=== PATIENT | female | born 1940 | race Caucasian/White ===

== ENCOUNTER 2016-09-27 10:52 | Inpatient (IN) | payer MEDICARE, OTHER ==
[~2016-09-27] VITALS: Ht 170.2 cm; Wt 60.9 kg
[~2016-09-27 10:52] MED LIST: AVAPRO150 MG PO; GLUCOPHAGE500 MG PO; HYDROCHLOROTHIA25 MG PO; NORVASC10 MG PO; PRAVACHOL40 MG PO; REGLAN10 MG PO; SYNTHROID50 MCG PO; TOPROL XL50 MG PO; ZOFRAN4 MG PO
[2016-09-27 12:08] LABS: BASOPHILS 0.3 % (0-2); EOSINOPHILS 1.8 % (0-7); HEMATOCRIT 41.3 % (36.0-48.0); HEMOGLOBIN 14.3 g/dL (12-16); IMMATURE GRANULOCYTES 0.2 % (0-5); LYMPHOCYTES 13.7 % (15-50); MCHC 34.6 g/dL (31.0-37.0); MCV 92.4 fL (80.0-100.0); MEAN PLATELET VOLUME 9.8 fL (7.4-10.4); MONOCYTES 7.9 % (2-11); NEUTROPHILS 76.1 % (40-80); PLATELET COUNT 182 10x3/uL (130-400); RBC 4.47 10x6/uL (4.00-5.40); RDW 12.2 % (11.5-14.5); WBC 6.6 10x3/uL (4.8-10.8)
[2016-09-27 12:27] LABS: ALBUMIN 3.4 g/dL (3.4-5.0); ALKALINE PHOSPHATASE 62 U/L (46-116); ALT (SGPT) 14 U/L (10-68); CALC OSMOLALITY 274 mosm/kg (275-300); CALCIUM 9.3 mg/dL (8.5-10.1); CARBON DIOXIDE 29.2 mmol/L (21.0-32.0); CHLORIDE - SERUM 101 mmol/L (98-107); CREATININE - SERUM 0.7 mg/dL (0.6-1.3); GLUCOSE 101 mg/dL (74-106); POTASSIUM - SERUM 3.7 mmol/L (3.5-5.1); PROTEIN - SERUM 7.3 g/dL (6.4-8.2); SODIUM 138 mmol/L (136-145); UREA NITROGEN 11 mg/dL (7-18); eGFR NON AFRICAN AMERICAN 87 mL/min (90-120)
[2016-09-27 12:40] LABS: CKMB 0.5 U/L (0.0-3.6); CREATINE KINASE 23 UL (21-215); THYROID STIMULATING HORMONE 1.77 uIU/mL (0.36-3.74); TROPONIN-I < 0.017 ng/mL (0.000-0.060)
[2016-09-27 13:53] LABS: APPEARANCE CLEAR (CLEAR); BILIRUBIN NEGATIVE (NEGATIVE); COLOR YELLOW (YELLOW); GLUCOSE NEGATIVE (NEGATIVE); KETONE SMALL mg/dL (NEGATIVE); LEUKOCYTE ESTERASE TRACE (NEGATIVE); NITRITE NEGATIVE (NEGATIVE); PROTEIN NEGATIVE (NEGATIVE); SPECIFIC GRAVITY 1.015 (1.005-1.020); UROBILINOGEN NORMAL (NORMAL)
[2016-09-27 13:54] LABS: BACTERIA FEW /hpf (NONE SEEN); EPITHELIAL CELLS 0-5 /hpf (0-5); MUCUS <1+ /lpf (NONE SEEN); RED CELLS - URINE 0-5 /hpf (0-5)
[2016-09-27 14:49] LABS: CKMB 0.6 U/L (0.0-3.6); CREATINE KINASE 52 UL (21-215); TROPONIN-I < 0.017 ng/mL (0.000-0.060)
--- NOTE | 2016-09-27 15:48 | NUR ---
PT RECIEVED TO ROOM FROM ER. PT ALERT AND ORIENTED. DENIES PAIN AT REST, REPORTS PAIN WITH MOVEMENT IN HER BACK. BREATHING EQUAL AND UNLABORED. FAMILY AT BEDSIDE. REPORTS FEELING "MORE LIKE HERSELF" SINCE HER WEAKNESS EPISODE. WILL CTM.
[2016-09-27 15:57] VITALS: BP 147/61; Ht 170.2 cm; Wt 60.9 kg
[2016-09-27 19:00] VITALS: BP 128/44
--- NOTE | 2016-09-27 20:00 | NUR ---
PT LYING IN BED, EYES CLOSED, RESPIRATIONS EVEN AND UNLABORED. PT EASILY ROUSABLE TO VERBAL STIMULI, DEMONSTRATES GENERALIZED WEAKNESS. DAUGHTER IN [place] CALLED TO CHECK ON MOM, TRANSFERRED PHONE CALL TO PT WHERE SHE WAS ABLE TO ANSWER ON HER OWN AND SPEAK WITH HER DAUGHTER. PT DENIES ANY NEEDS AT THIS TIME. CONTINUE TO MONITOR CLOSELY.
[2016-09-27 20:40] LABS: CKMB 0.4 U/L (0.0-3.6); CREATINE KINASE 23 UL (21-215)
[2016-09-27 20:41] LABS: TROPONIN-I < 0.017 ng/mL (0.000-0.060)
--- NOTE | 2016-09-27 22:12 | NUR ---
PT'S SON WAS VISITING, HAS GONE HOME NOW, BUT LEFT NUMBER, OXANA MEMBRENO @ [phone]. PT IS RESTING COMFORTABLY. CONTINUE TO MONITOR CLOSELY.
[2016-09-28 02:48] LABS: BASOPHILS 0.2 % (0-2); EOSINOPHILS 3.2 % (0-7); HEMATOCRIT 36.6 % (36.0-48.0); HEMOGLOBIN 12.4 g/dL (12-16); IMMATURE GRANULOCYTES 0.2 % (0-5); MCH 31.3 pg (26.0-34.0); MCHC 33.9 g/dL (31.0-37.0); MCV 92.4 fL (80.0-100.0); MEAN PLATELET VOLUME 9.8 fL (7.4-10.4); MONOCYTES 9.5 % (2-11); NEUTROPHILS 62.9 % (40-80); PLATELET COUNT 165 10x3/uL (130-400); RBC 3.96 10x6/uL (4.00-5.40); WBC 5.4 10x3/uL (4.8-10.8)
[2016-09-28 03:18] LABS: CALC OSMOLALITY 276 mosm/kg (275-300); CALCIUM 8.9 mg/dL (8.5-10.1); CARBON DIOXIDE 27.5 mmol/L (21.0-32.0); CHLORIDE - SERUM 102 mmol/L (98-107); CKMB 0.4 U/L (0.0-3.6); CREATINE KINASE 18 UL (21-215); CREATININE - SERUM 0.6 mg/dL (0.6-1.3); GLUCOSE 101 mg/dL (74-106); POTASSIUM - SERUM 3.6 mmol/L (3.5-5.1); SODIUM 139 mmol/L (136-145); UREA NITROGEN 10 mg/dL (7-18); eGFR NON AFRICAN AMERICAN > 90 mL/min (90-120)
[2016-09-28 03:19] LABS: TROPONIN-I < 0.017 ng/mL (0.000-0.060)
--- NOTE | 2016-09-28 03:31 | NUR ---
BED BATH GIVEN, LINEN CHANGED, GOWN CHANGED.
[2016-09-28 04:00] VITALS: BP 167/52
--- NOTE | 2016-09-28 04:15 | NUR ---
PT AWAKE, ALERT, ORIENTED, STATES SHE HAS SHARP SHOOTING PAIN THAT RADIATES UP HER NECK WHEN SHE TURNS HER HEAD TO THE LEFT SIDE. PT IS REQUESTING TYLENOL AND SOMETHING FOR SLEEP, OTHERWISE DENIES ANY NEEDS. CONTINUE TO MONITOR CLOSELY.
--- NOTE | 2016-09-28 07:56 | NUR ---
AM ROUNDS - PT IN BED AND APPEARS TO BE SLEEPING WITH EQUAL AND NON LABORED BREATHING. NO SCDS AT THIS TIME. YELLOW BAND ON. IV TO RIGHT WRIST, NS AT 100CC/HR. SIDE RAILS UP X2. O2 AT 2L VIA NC. CALL BRIDGES IN USE/REACH. WILL CONTINUE TO MONITOR
[2016-09-28 09:56] VITALS: BP 169/54
[2016-09-28 11:07] VITALS: BP 127/45
--- NOTE | 2016-09-28 12:06 | NUR ---
Rehab Note- Acute Rehab Prescreen order received. Awaiting Physical therapy screen to evaluate the patient's physical mobility. Will follow the patient at this time. Thank you for this referral! Vita Meyer RN Clinical Liaison, [facility]
--- NOTE | 2016-09-28 12:27 | NUR ---
1215-DAUGHTER (RONALD JOY) TO CALL FROM [place] AND INQUIR ABOUT PAATIENT. SHE REPORTS THAT SHE IS CONCERNED AND WANTS TO CALL APS ON HER BROTHER WHO IS TAKING CARE OF HER. SHE SAYS THAT SHE HAS SEVERAL PEOPLE "BEING HER EYES" AND IS BEING TOLD AT HOME THAT THE PATIENT IS "LAYING IN URINE AND HAS BEDSORES". I ASKED THE PATIENT IF I COULD TALK TO [place] AND SHE SAID I COULD. BONIFACIO ALSO ASKED IF A NATHANIEL LALA COULD VISIT AND PATIENT SAID YES. I ASKED CARLOS ENRIQUE DOLAN RN (PRIMARY NURSE TODAY) IF THERE WERE ANY BEDSORES ON PATIENT, I DID NOT SEE ANYTHING ON ADMIT, AND SHE TOLD ME THAT HER BOTTOM HAD INTACT SKIN. PER CARLOS ENRIQUE, PATIENT HAS BEEN INCONTIENT OF URINE HERE BUT SHE IS BEING CHANGED OFTEN.
--- NOTE | 2016-09-28 13:40 | NUR ---
PT IN BED AND APPEARS TO BE SLEEPING WITH EQUAL AND NON LABORED BREATHING. WILL CONTINUE TO MONITOR
[2016-09-28 16:00] VITALS: BP 146/60
--- NOTE | 2016-09-28 20:00 | NUR ---
PT IN BED WITH HOB UP FOR COMFORT. PT STATES THAT SHE IS HUNGRY. I TOLD PT HER DINNER TRAY HAS NOT BEEN TOUCHED. SET TRAY UP. AND PT FED SELF.
--- NOTE | 2016-09-29 03:41 | NUR ---
PT LYING IN BED RESTING QUIETLY. BED IN LOWEST POSITION AND CALL LIGHT WITHIN REACH.
[2016-09-29 04:00] VITALS: BP 155/65
[2016-09-29 05:08] LABS: BASOPHILS 0.3 % (0-2); EOSINOPHILS 2.4 % (0-7); HEMATOCRIT 39.6 % (36.0-48.0); HEMOGLOBIN 13.5 g/dL (12-16); IMMATURE GRANULOCYTES 0.2 % (0-5); LYMPHOCYTES 17.6 % (15-50); MCH 31.3 pg (26.0-34.0); MCHC 34.1 g/dL (31.0-37.0); MCV 91.9 fL (80.0-100.0); MEAN PLATELET VOLUME 9.9 fL (7.4-10.4); MONOCYTES 8.7 % (2-11); NEUTROPHILS 70.8 % (40-80); PLATELET COUNT 159 10x3/uL (130-400); RBC 4.31 10x6/uL (4.00-5.40); RDW 11.9 % (11.5-14.5); WBC 5.8 10x3/uL (4.8-10.8)
[2016-09-29 05:21] LABS: CALC OSMOLALITY 276 mosm/kg (275-300); CALCIUM 8.5 mg/dL (8.5-10.1); CHLORIDE - SERUM 104 mmol/L (98-107); CREATININE - SERUM 0.6 mg/dL (0.6-1.3); GLUCOSE 87 mg/dL (74-106); POTASSIUM - SERUM 3.1 mmol/L (3.5-5.1); SODIUM 141 mmol/L (136-145); UREA NITROGEN 5 mg/dL (7-18); eGFR NON AFRICAN AMERICAN > 90 mL/min (90-120)
--- NOTE | 2016-09-29 07:52 | NUR ---
AM ROUNDS - PT APPEARS TO BE SLEEPING WITH EQUAL AND NON LABORED BREATHING. O2 AT 2L VIA NC. IV IN RIGHT WRIST WITH NS @ 30CC/HR. MONITOR SHOWING SR, HR 65. WILL CONTINUE TO MONITOR
[2016-09-29 11:52] VITALS: BP 123/57
[2016-09-29 16:00] VITALS: BP 129/64
--- NOTE | 2016-09-29 16:13 | NUR ---
Rehab Note- Visited with the patient stated she is very weak and feels she would benefit from acute rehab. Will follow at this time. And plan for possible [facility] IRF stay when ready for discharge from the acute hospital. Thank you for this referral! Vita Meyer RN Clinical Liaison, [facility] Re[facility]
[2016-09-29 21:30] VITALS: BP 143/61
[2016-09-30 01:07] VITALS: BP 158/60
[2016-09-30 05:26] VITALS: BP 142/60
--- NOTE | 2016-09-30 05:34 | NUR ---
PATIENT SLEPT THROUGH THE NIGHT WITH ON BLADDER ACCIDENT. NO NEEDS NOTED.
[2016-09-30 07:36] LABS: BASOPHILS 0.2 % (0-2); EOSINOPHILS 3.4 % (0-7); HEMATOCRIT 35.8 % (36.0-48.0); HEMOGLOBIN 12.2 g/dL (12-16); IMMATURE GRANULOCYTES 0.2 % (0-5); LYMPHOCYTES 17.7 % (15-50); MCH 31.7 pg (26.0-34.0); MCHC 34.1 g/dL (31.0-37.0); MEAN PLATELET VOLUME 9.9 fL (7.4-10.4); MONOCYTES 9.3 % (2-11); NEUTROPHILS 69.2 % (40-80); PLATELET COUNT 170 10x3/uL (130-400); RBC 3.85 10x6/uL (4.00-5.40); RDW 12.2 % (11.5-14.5); WBC 5.9 10x3/uL (4.8-10.8)
[2016-09-30 07:47] LABS: CALCIUM 8.5 mg/dL (8.5-10.1); CARBON DIOXIDE 31.4 mmol/L (21.0-32.0); CHLORIDE - SERUM 104 mmol/L (98-107); CREATININE - SERUM 0.6 mg/dL (0.6-1.3); GLUCOSE 90 mg/dL (74-106); SODIUM 139 mmol/L (136-145); eGFR NON AFRICAN AMERICAN > 90 mL/min (90-120)
[2016-09-30 07:48] LABS: CALC OSMOLALITY 275 mosm/kg (275-300); POTASSIUM - SERUM 3.7 mmol/L (3.5-5.1); UREA NITROGEN 8 mg/dL (7-18)
[2016-09-30 08:00] VITALS: BP 132/43
--- NOTE | 2016-09-30 11:35 | NUR ---
Patient Name: HITESH JACINTO Admission Status: ER Accout number: [id number] Admission Date: 09-28-2016 : 1941 Admission Diagnosis: Attending: ELOY Current LOS: 2 Anticipated DC Date: 09-30-2016 Planned Disposition: Inpatient Rehab Primary Insurance: MEDICARE A & B PLANNED EXTERNAL PROVIDER: [facility] INPATIENT REHAB Discharge Planning Comments: * Is the patient Alert and Oriented? Yes 0 * How many steps to enter\exit or inside your home? 3-4 0 * PCP DR. MARTI 0 * Pharmacy [facility] [address] 0 * Preadmission Environment Home with Family 0 * ADLs Partial Dependent 0 * Partial ADLs (Assistance needed) Ambulation Bathing Dressing Medication Management Toileting Transfers 0 * Equipment Glucometer Rolling Walker 0 * Other Equipment [facility] - MEDICAL EQUIPMENT PROVIDER PREFERENCE 0 * List name and contact numbers for known caregivers / representatives who currently or will assist patient after discharge: DELFINA MEMBRENO, SON, 0 * Community resources currently utilized None 0 * Please name any agencies selected above. NONE 0 * Additional services required to return to the preadmission environment? Yes * Can the patient safely return to the preadmission environment? Yes 0 * Has this patient been hospitalized within the prior 30 days at any hospital? No 0 CM RECEIVED ORDER FOR INPATIENT REHAB PRESCREENING AND DISCHARGE PLANNING. CM MET WITH PT IN ROOM TO DISCUSS DISCHARGE PLANNING AND NEEDS. PT REPORTS LIVING AT HOME MOSTLY DEPENDENT ON ADULT SON; PT REPORTS SHE HAS BECOME INCREASINGLY WEAK AND REQUIRES ASSISTANCE EVERYTHING EXCEPT EATING AT THIS TIME. PT HAS A ROLLING WALKER THAT HER SON USES TO GET PT AROUND THE HOUSE AND A GLUCOMETER; Maribell[employer] IS PT'S MEDICAL EQUIPMENT PROVIDER. PT HAS NO OUTSIDE SERVICES ASSISTING IN THE HOME. CM DISCUSSED AVAILABILITY OF HOME HEALTH, REHAB SERVICES AND MEDICAL EQUIPMENT. PT FEELS SHE IS TOO WEAK TO GO HOME AND WOULD LIKE TO GO TO [facility] INPATIENT REHAB, HER SPOUSE WAS THERE WHEN HE WAS ALIVE AND RECEIVED GOOD CARE AND REHAB. PT REPORTS HER SON WILL PICK HER UP FOR DISCHARGE HOME. IMPORTANT MESSAGE FROM MEDICARE PROVIDED AND EXPLAINED. CM SPOKE TO FRANCIA OF INPATIENT REHAB, THEY PLAN TO ACCEP, FOR REHAB. PT NOTIFIED, IN AGREEMENT WITH DISCHARGE TO INPATIENT REHAB. PLEASE NOTIFY INPATIENT REHAB WHEN DISCHARGE ORDERS ARE RECEIVED. [facility] INPATIENT REH[facility] TO CONTACT MED 2 NURSE WITH ROOM NUMBER WHEN READY TO ACCEPT PT AND NURSE REPORT. [employer] Technician: Jake Richardson
[2016-09-30 12:00] VITALS: BP 115/49
--- NOTE | 2016-09-30 15:18 | NUR ---
ALERT AND ORIENTED X4. REPORT CALLED TO MEREDITH MARAVILLA IN REHAB.
--- NOTE | 2016-09-30 16:23 | NUR ---
ALERT AND ORIENTED X4. ASSIST DRESSING. DC RT WRIST IV TIP INTACT. UNABLE TO SIGN DISCHARGE PAPERS. PATIENT STATES, "I CAN'T WRITE". ASSIST TO WHEELCHAIR. TRANSPORT TO INPATIENT REHAB VIA WHEELCHAIR. REMAINS FREE FROM INJURY.
== END 2016-09-30 16:24 | DRG 74 ==
LOC: D.ER 10:52 → OBSVTIME 13:55 → D.M2 13:55
PROVIDERS: Emergency Medicine; Family Medicine; ADMIT Family Medicine
DX: E11.43 Type 2 diabetes mellitus with diabetic autonomic (poly)neuropathy (principal); N39.0 Urinary tract infection, site not specified; R51 Headache; K31.84 Gastroparesis; I10 Essential (primary) hypertension; Z86.73 Personal history of transient ischemic attack (TIA), and cerebral infarction without residual deficits

== ENCOUNTER 2016-09-30 16:45 | Inpatient (IN) | payer MEDICARE, OTHER ==
[~2016-09-30] VITALS: Ht 170.2 cm; Wt 63.5 kg
[2016-09-30 18:24] VITALS: BMI 21.9
[2016-09-30 19:00] VITALS: BP 159/64
--- NOTE | 2016-09-30 19:30 | NUR ---
PT RESTING IN ROOM SON PRESENT, PT DENIES PAIN OR NEEDS AT THIS TIME.
--- NOTE | 2016-09-30 21:30 | NUR ---
PT REPORTED A HISTORY OF CVA SEVERAL YEARS AGO, PT STATES SHE HAS NEUROPATHY IN HER LOWER EXTREMITIES, AND SHE HAS TROUBLE HOLDING HER URINE. PT CONVERSIVE, SMILES EASILY, DENIES ANY PAIN OR NEEDS.
--- NOTE | 2016-10-01 04:53 | NUR ---
PT RESTING WITH EYES CLOSED, RESPIRATIONS REGULAR AND UNLABORED, NO S/S OF ACUTE DISTRESS.
--- NOTE | 2016-10-01 04:55 | NUR ---
PT RESTING QUIETLY, EYES CLOSED, NO S/S OF ACUTE DISTRESS.
[2016-10-01 07:00] LABS: BASOPHILS 0.4 % (0-2); EOSINOPHILS 3.1 % (0-7); HEMATOCRIT 37.8 % (36.0-48.0); HEMOGLOBIN 13.1 g/dL (12-16); IMMATURE GRANULOCYTES 0.2 % (0-5); MCHC 34.7 g/dL (31.0-37.0); MCV 92.2 fL (80.0-100.0); MEAN PLATELET VOLUME 10.1 fL (7.4-10.4); MONOCYTES 9.1 % (2-11); NEUTROPHILS 67.2 % (40-80); PLATELET COUNT 178 10x3/uL (130-400); RDW 12.1 % (11.5-14.5); WBC 5.2 10x3/uL (4.8-10.8)
--- NOTE | 2016-10-01 07:00 | NUR ---
ASSISTED TO RESTROOM, CHANGED CLOTHES AND ASSISTED WITH WASH UP. PT IN BED RESTING QUIETLY. CALL LIGHT IN REACH.
[2016-10-01 07:23] LABS: CALC OSMOLALITY 275 mosm/kg (275-300); CALCIUM 8.8 mg/dL (8.5-10.1); CARBON DIOXIDE 29.6 mmol/L (21.0-32.0); CHLORIDE - SERUM 103 mmol/L (98-107); CREATININE - SERUM 0.5 mg/dL (0.6-1.3); GLUCOSE 94 mg/dL (74-106); POTASSIUM - SERUM 3.5 mmol/L (3.5-5.1); SODIUM 140 mmol/L (136-145); eGFR NON AFRICAN AMERICAN > 90 mL/min (90-120)
[2016-10-01 07:24] LABS: UREA NITROGEN 5 mg/dL (7-18)
[2016-10-01 07:30] VITALS: BP 171/79
--- NOTE | 2016-10-01 09:00 | NUR ---
PT IN THERAPY
--- NOTE | 2016-10-01 11:00 | NUR ---
PT IN THERAPY
--- NOTE | 2016-10-01 11:47 | NUR ---
PATIENT ADMITTED TO REHAB FROM ACUTE FLOOR. PATIENT PCP IS DR. MARTI, HER PHARMACY OF CHOICE IS [facility] [address] [facility]. SHE USES [facility] FOR HER DME NEEDS, PATIENT HAS A WALKER AT HOME. HER SON WILL PICK HER UP WHEN DISCHARGED TO HER HOME. WILL CONTINUE TO FOLLOW WITH PATIENT
[2016-10-01 12:32] VITALS: Ht 170.2 cm; Wt 63.5 kg
--- NOTE | 2016-10-01 13:30 | NUR ---
LYING IN BED RESTING QUIELTY. NO CONCERNS VOICED AT THIS TIME. CALL LIGHT IN REACH.
--- NOTE | 2016-10-01 16:09 | NUR ---
PT IN THERAPY
--- NOTE | 2016-10-01 17:00 | NUR ---
LYING IN BED WATCHING TV QUIETLY. CALL LIGHT IN REACH
--- NOTE | 2016-10-01 19:40 | NUR ---
PT REST IN BED, EYE OPEN, SON VISIT.
[2016-10-01 20:00] VITALS: BP 150/66
--- NOTE | 2016-10-01 23:05 | NUR ---
PT INCONTINENCE, CHANGE LINEN AND GOWN.
--- NOTE | 2016-10-02 03:50 | NUR ---
RESTING QUIETLY IN BED, EYES CLOSED.
--- NOTE | 2016-10-02 07:05 | NUR ---
PT INCONTINENCE, CHANGE LINEN AND GOWN.
--- NOTE | 2016-10-02 07:10 | NUR ---
LYING IN BED RESTING QUIETLY. ALERT AND ORIENTED X4. PLEASANT AFFECT. CALL LIGHT IN REACH.
[2016-10-02 07:27] LABS: BASOPHILS 0.2 % (0-2); EOSINOPHILS 2.9 % (0-7); HEMATOCRIT 41.6 % (36.0-48.0); HEMOGLOBIN 14.3 g/dL (12-16); LYMPHOCYTES 22.9 % (15-50); MCH 31.8 pg (26.0-34.0); MCHC 34.4 g/dL (31.0-37.0); MCV 92.4 fL (80.0-100.0); MONOCYTES 9.4 % (2-11); NEUTROPHILS 64.6 % (40-80); PLATELET COUNT 180 10x3/uL (130-400); RDW 12.3 % (11.5-14.5); WBC 4.5 10x3/uL (4.8-10.8)
[2016-10-02 07:45] LABS: CALC OSMOLALITY 276 mosm/kg (275-300); CALCIUM 9.4 mg/dL (8.5-10.1); CHLORIDE - SERUM 102 mmol/L (98-107); CREATININE - SERUM 0.6 mg/dL (0.6-1.3); GLUCOSE 101 mg/dL (74-106); SODIUM 140 mmol/L (136-145); UREA NITROGEN 6 mg/dL (7-18); eGFR NON AFRICAN AMERICAN > 90 mL/min (90-120)
[2016-10-02 09:11] VITALS: BP 163/71
--- NOTE | 2016-10-02 09:30 | NUR ---
PT IN THERAPY
--- NOTE | 2016-10-02 11:30 | NUR ---
LYING IN BED EYES CLOSED RESTING QUIETLY. OXYGEN STILL ON 2L NASAL CANULA. CALL LIGHT IN REACH.
--- NOTE | 2016-10-02 13:30 | NUR ---
SITTING UP IN WHEELCHAIR VISITING WITH FAMILY. CALL LIGHT IN REACH
--- NOTE | 2016-10-02 13:30 | NUR ---
IN THERAPY.ALICIA WELL.
--- NOTE | 2016-10-02 15:15 | NUR ---
SITTING UP IN BED 45 DEGREES LOOKING AT TV QUIETLY. NO CONCERNS VOICED. OXYGEN IN PLACE AT 2L VIA NASAL CANULA. CALL LIGHT IN REACH
--- NOTE | 2016-10-02 17:10 | NUR ---
SITTING UP IN BED VISITING WITH FAMILY. NO CONCERNS VOICED AT THIS TIME. OXYGEN STILL ON 2L VIA NASAL CANULA. CALL LIGHT IN REACH
--- NOTE | 2016-10-02 19:15 | NUR ---
PT RESTING WITH EYES CLOSED, RESP QUIET, NO DISTRESS NOTED, LFET UNDISTURBED AT THIS TIME
[2016-10-02 20:15] VITALS: BP 143/76
--- NOTE | 2016-10-02 20:15 | NUR ---
ASSESSMENT PER FLOW SHEET, VS OBTAINED, PT DENIES NEEDS OR PAIN AT THIS TIME, BED IN LOW POSITION, SIDE RAILS X 2, CALL LIGHT IN REACH, BED ALARM ON AND WORKING PROPERLY
--- NOTE | 2016-10-02 21:18 | NUR ---
PT RESTING WITH EYES CLOSED, AROUSES TO SOFT VERBAL STIMULATION, ADM 2100 MED PO PER MD ORDERS, SEE EMAR, PT DENIES NEEDS OR PAIN AT THIS TIME
--- NOTE | 2016-10-02 22:40 | NUR ---
PT AWAKE, PT VOIDED AND HAD BM, PT CLEANED UP WITH WET WARM WIPES, CLEAN ADULT GARMENT PLACED ON, PINK PAD CHANGED, PT DENIES FURTHER NEEDS
--- NOTE | 2016-10-03 | NUR ---
PT RESTING WITH EYES CLOSED, RESP QUIET, NO DISRESS NOTED, LEFT UNDISTURBED AT THIS TIME
--- NOTE | 2016-10-03 02:04 | NUR ---
PT RESTING WITH EYES CLOSED, RESP QUIET, NO DISTRESS NOTED, LEFT UNDISTURBED AT THIS TIME, BED IN LOW POSITION, SIDE RAILS X 2, CALL LIGHT IN REACH, BED ALARM WORKING
--- NOTE | 2016-10-03 04:05 | NUR ---
PT RESTING WITH EYES CLOSED, RESP QUIET, NO DISTRESS NOTED, LEFT UNDISTURBED AT THIS TIME
--- NOTE | 2016-10-03 05:33 | NUR ---
PT AWAKE, PT INCONTINENT, PT CLEANED UP WITH WET WARM CLOTHS, ADULT GARMENT AND SCRUB TOP CHANGED, PINK PAD AND TOP BEDDING CHANGED, PT DENIES FURTHER NEEDS
--- NOTE | 2016-10-03 06:28 | NUR ---
PT RESTING WITH EYES CLOSED, AROUSES TO SOFT VERBAL STIMULATION, ADM 0600 MEDS PO PER MD ORDERS, SEE EMAR, PT DENIES NEEDS, BED IN LOW POSITION, SIDE RAILS X 2, CALL LIGHT IN REACH, BED ALARM ON AND WORKING PROPERLY
--- NOTE | 2016-10-03 06:59 | NUR ---
SHIFT REPORT TO DAY SHIFT
--- NOTE | 2016-10-03 07:10 | NUR ---
LYING IN BED EYES CLOSED RESTING QUIETLY. EASILY AROUSED TO STIMULI. CALL LIGHT IN REACH.
--- NOTE | 2016-10-03 08:56 | RHP ---
PATIENT: HITESH JACINTO MEDICAL RECORD: [id number] ACCOUNT: [id number] LOCATION:[facility]1113 : 41 ADMISSION DATE: 09/30/16 REHABILITATION HISTORY AND PHYSICAL EXAMINATION POST ADMISSION PHYSICIAN EXAMINATION Post-admission Physical Examination and History and Physical DATE OF ADMISSION: 09/30/2016 ADMITTING DIAGNOSES: Debility and weakness secondary to urinary tract infection. HISTORY OF PRESENT ILLNESS: The patient is admitted to the inpatient rehabilitation for debility and weakness secondary to UTI. She is a 75-year-old female that presented to the Emergency Department with reports of UTI and increased weakness. She lives at home with her son and assist with her care. She is incontinent of urine and wears Breeze. States that she is able to use a rolling walker and is able to transfer and ambulate at moderate assist. She has been receiving IV antibiotic therapy for UTI. She is currently wearing oxygen O2 via nasal cannula at 2 liters. She is currently set up for max assist for ADLs and max assist for total mobility. She plans to return home with her son when her prior level of functioning are better. COMORBIDITIES: In this patient include moderate to severe burden of white matter changes likely represent small vessel ischemia, UTI, nausea, vomiting, gastroparesis, headache, weakness. PAST MEDICAL HISTORY: Significant for CVA, diabetes and hypertension. PAST SURGICAL HISTORY: Includes hysterectomy. ALLERGIES: BENADRYL, PENICILLIN. SHE IS ALLERGIC TO CODEINE AND SULFA. CURRENT MEDICATIONS: Include Synthroid 50 mcg daily. She is on Pravachol 40 mg q.h.s., Zofran 4 mg q.6 hours p.r.n. nausea and vomiting, metoclopramide 10 mg q.a.c. and q.h.s. and polyethylene glycol 17 g in 8 ounces of water daily. HABITS: No alcohol or tobacco use. FAMILY HISTORY: Noncontributory. SOCIAL HISTORY: The patient hopes to return back home and get back to her prior level of functioning. REVIEW OF SYSTEMS: GENERAL: Does complain of weakness. HEENT: Denies cold, cough, or congestion. CARDIOVASCULAR: Denies chest pain. PHYSICAL EXAMINATION: VITAL SIGNS: Stable, afebrile. GENERAL: Elderly female in no acute distress, alert upon exam. HEENT: Normocephalic, atraumatic. Mucosa moist. NECK: Supple. No lymphadenopathy. HISTORY AND PHYSICAL [id number] HITESH JACINTO LUNGS: Clear at this time. HEART: Regular rate and rhythm. ABDOMEN: Benign. EXTREMITIES: No clubbing, cyanosis or edema. NEUROLOGIC: Slow to mentate, but intact. LABORATORY DATA: White count is 5.2, H&H of 13 and 37, and platelet count is 178. Her sodium is 140, potassium 3.7, BUN and creatinine of 5 and 0.5 and blood sugar is noted to be 94. ASSESSMENT: This is a 75-year-old female patient admitted to rehab with a working diagnosis of debility secondary to urinary tract infection. The patient has potential to make improvement. We instituted the following multidisciplinary therapies including to, but not limited to physical, occupational, respiratory, speech, nutritional services, prosthetics and orthotics. Given her complex condition and risk of further medical complications, the patient cannot be provided care at a level of care such as a [place] [facility] facility. PLAN: 1. Admit to [facility] rehab for intensive inpatient therapy to include the following disciplines: A. Physical therapy to improve gait, all transfer skills and bed mobility to a modified independent level. B. Occupational therapy to improve activities of daily living to a modified independent level. C. Case management to assist with discharge planning and placement options. D. Nutrition to assist with nutritional needs. E. Rehabilitation nursing to assist in monitoring the patient's underlying medical conditions and to assist with any type of bowel or bladder management. 2. The patient's current medications and medical care will be continued. 3. The patient will be placed on standard fall precautions. 4. The patient's estimated length of stay is approximately 7-10 days. 5. Discuss this patient during care team staff meeting this week. TRANSINT:[id number] Voice Confirmation ID: [id number] DOCUMENT ID: [id number] CATALINA notes whether there has been none or any medical/functional change since admission: - No change. CATALINA attests patient continues to be appropriate for IRF: - Remains appropriate for IRF stay. HISTORY AND PHYSICAL [id number] HITESH JACINTO SCOTT MD at 0856 CC: [id number] DICTATION DATE: 10/01/16 1045 CORPORATE ASSOCIATE: 10/01/16 1127 ADM IN [place] [id number] [place] [address]
--- NOTE | 2016-10-03 09:11 | NUR ---
SITTING UP IN BED EATING BREAKFAST. ALERT AND ORIENTED X3. NO CONCERNS VOICED AT THIS TIME. CALL LIGHT IN REACH.
[2016-10-03 09:12] VITALS: BP 161/74
--- NOTE | 2016-10-03 11:17 | NUR ---
SITTING UP IN BED WATCHING TV QUIETLY. DENIES NEEDS. CALL LIGHT IN REACH
--- NOTE | 2016-10-03 13:36 | NUR ---
LYING IN BED EYES CLOSED RESTING QUIETLY. EASILY AROUSED WITH VERBAL STIMULI. CALL LIGHT IN REACH
--- NOTE | 2016-10-03 15:30 | NUR ---
SITTING UP IN WHEELCHAIR WATCHING TV. C/O LOWER BACK PAIN WILL ORDER TYLENOL. CALL LIGHT IN REACH
--- NOTE | 2016-10-03 17:15 | NUR ---
IN SPEECH THERAPY.
--- NOTE | 2016-10-03 18:00 | NUR ---
IN BED.CL IN REACH.
[2016-10-03 19:30] VITALS: BP 132/52
--- NOTE | 2016-10-03 19:38 | NUR ---
PT IS RESTING QUIETLY IN BED WITH EYES CLOSED. AWOKE EASILY TO VERBAL STIMULI. PT DENIED PAIN OR DISCOMFORT. NOTED TO BE INC. OF URINE. MICHELE CARE AND PAD CHANGE DONE. VSS. O2 IS ON @ 2LPM PER NC. SR'S ARE UP X 3 IN BED. CALL LIGHT AND BEDSIDE TABLE ARE WITHIN EASY REACH.
--- NOTE | 2016-10-03 21:19 | NUR ---
PT IS RESTING IN BED TALKING TO HER DAUGHTER ON THE PHONE. NO NEEDS VOICED.
--- NOTE | 2016-10-03 23:50 | NUR ---
IN BED, EYES CLOSED. SNORING.
--- NOTE | 2016-10-04 02:59 | NUR ---
PT IS RESTING QUIETLY IN BED WITH EYES CLOSED. RESPS ARE EVEN AND UNLABORED. NO ACUTE DISTRESS NOTED.
[2016-10-04 07:05] LABS: BASOPHILS 0.4 % (0-2); EOSINOPHILS 3.5 % (0-7); HEMATOCRIT 38.6 % (36.0-48.0); HEMOGLOBIN 13.5 g/dL (12-16); IMMATURE GRANULOCYTES 0.2 % (0-5); LYMPHOCYTES 23.7 % (15-50); MCH 31.9 pg (26.0-34.0); MCV 91.3 fL (80.0-100.0); MEAN PLATELET VOLUME 10.1 fL (7.4-10.4); NEUTROPHILS 61.2 % (40-80); PLATELET COUNT 196 10x3/uL (130-400); RBC 4.23 10x6/uL (4.00-5.40); RDW 12.3 % (11.5-14.5); WBC 4.8 10x3/uL (4.8-10.8)
[2016-10-04 07:11] LABS: CALC OSMOLALITY 276 mosm/kg (275-300); CALCIUM 9.1 mg/dL (8.5-10.1); CARBON DIOXIDE 28.8 mmol/L (21.0-32.0); CHLORIDE - SERUM 102 mmol/L (98-107); CREATININE - SERUM 0.6 mg/dL (0.6-1.3); GLUCOSE 97 mg/dL (74-106); POTASSIUM - SERUM 3.5 mmol/L (3.5-5.1); SODIUM 139 mmol/L (136-145); UREA NITROGEN 11 mg/dL (7-18); eGFR NON AFRICAN AMERICAN > 90 mL/min (90-120)
--- NOTE | 2016-10-04 07:30 | NUR ---
RESTING QUIETLY IN BED CALL LIGHT IN REACH
--- NOTE | 2016-10-04 08:00 | NUR ---
PATIENT ALERT/ORIENT X4. RESTING IN BED. BREAKFAST TRAY SET UP FOR PATIENT. PATIENTS RIGHT HAND VERY WEAK. THIS NURSE OPENED UP CARTONS FOR PATIENT. CALL LIGHT WITHIN REACH. BED ALARM ON
--- NOTE | 2016-10-04 10:31 | NUR ---
PATIENT IN REHAB ROOM WORKING WITH PHYSICAL THERAPIST. DENIES ANY PAIN/DISC AT THIS TIME.
--- NOTE | 2016-10-04 15:27 | NUR ---
PATIENT HELPED INTO BATHROOM AFTER THERAPY. INCONT. OF URINE. MOD ASST FROM WHEELCHAIR TO TOILET. TOTAL ASST WITH MICHELE CARE. HELPED BACK TO BED MAX ASST.
--- NOTE | 2016-10-04 15:33 | NUR ---
Nutrition Follow Up: Pt is eating 63% meal avg on a diabetic diet. Wt stable. +BM 10/03/16. Meds and labs reviewed. Rec continue current diet. RD following.
--- NOTE | 2016-10-04 17:45 | NUR ---
PRN TYLENOL GIVEN FOR BACK PAIN. SON IN ROOM VISITING WITH PATIENT.
--- NOTE | 2016-10-04 19:15 | NUR ---
RESTING QUIETLY IN BED, EYES CLOSED. NO EVIDENT DISTRESS.
[2016-10-04 21:05] VITALS: BP 152/56
--- NOTE | 2016-10-04 21:05 | NUR ---
RESTING QUIETLY IN BED, EYES CLOSED.
--- NOTE | 2016-10-04 21:05 | NUR ---
ASSESSMENT AND HS MEDS COMPLETE. CLEANSED AND CHANGED PATIENT FROM LARGE URINE INCONTINENCE IN BRIEF. ASSISTED HER TO REPOSITION HIGHER UP IN BED. DENIES FURTHER NEEDS.
--- NOTE | 2016-10-05 00:05 | NUR ---
BEDBATH COMPLETE AND LINENS CHANGED. PATIENT OPTED FOR BEDBATH SAYS SHE IS FEARFUL OF FALLING IN SHOWER DUE TO WEAK RIGHT SIDE. FRESH SCRUB TOP AND PULL-UP BRIEF APPLIED ALSO.
--- NOTE | 2016-10-05 02:05 | NUR ---
IN BED, EYES CLOSED. HOB UP 20 DEGREES. APPEARS COMFORTABLE.
--- NOTE | 2016-10-05 04:00 | NUR ---
RESTING IN BED, EYES CLOSED. SNORING LOUDLY.
--- NOTE | 2016-10-05 06:20 | NUR ---
CLEANSED PATIENT AND CHANGED HER PULL-UP AND PINK BED PAD DUE TO LARGE URINARY INCONTINENCE. REPOSITIONED HER HIGHER UP IN BED. TOOK SCHEDULED PO MEDS. DENIES NEEDS.
--- NOTE | 2016-10-05 06:53 | NUR ---
RESTING IN BED QUIETLY. CALL LIGHT IN REACH
[2016-10-05 07:45] VITALS: BP 154/103
--- NOTE | 2016-10-05 08:05 | NUR ---
PATIENT ALERT/ORIENT X4. CALL LIGHT WITHIN REACH. VOICES NO NEEDS AT THIS TIME.
--- NOTE | 2016-10-05 10:41 | NUR ---
PATIENT IN REHAB ROOM WORKING WITH OCCUPATIONAL THERAPIST. DENIES ANY PAIN/DISC AT THIS TIME
--- NOTE | 2016-10-05 11:55 | NUR ---
PRN TYLENOL GIVEN FOR BACK PAIN.
--- NOTE | 2016-10-05 20:40 | NUR ---
INCONTINENCE, CHANGE LINEN AND GOWN.
[2016-10-05 23:34] VITALS: BP 136/73
--- NOTE | 2016-10-06 02:30 | NUR ---
PT EYE CLOSED, RESPIRATIONS REGULAR AND UNLABORED. ASSISTED TO REPOTISION PATIENT EALIER THIS SHIFT IN THE BED, MOD ASSIST WITH BED MOBILITY. PT DENIES ANY OTHER NEEDS.
--- NOTE | 2016-10-06 03:36 | NUR ---
REST QUIETLY IN BED WITH EYE CLOSE, BED LOW, CALL LIGHT WITHIN REACH.
[2016-10-06 07:53] VITALS: BP 115/53
--- NOTE | 2016-10-06 08:55 | NUR ---
PT AM MEDS ADMINISTERED. PT DENIES NEEDS. WCTM.
--- NOTE | 2016-10-06 12:15 | NUR ---
PT EATING LUNCH, DENIES NEEDS. WCTM.
--- NOTE | 2016-10-06 17:15 | NUR ---
PT RESTING QUIETLY, MEDS GIVEN AND PT CHNAGED. WCTM.
--- NOTE | 2016-10-06 20:20 | NUR ---
PT. IN BED WITH HOB UP FOR COMFORT AND IS WATCHING TV AND ANSWERING ROOMMATES QUESTIONS. PT. DENIES ANY NEEDS. ASSESSMENT COMPLETED. CALL LIGHT WITHIN REACH.
[2016-10-06 21:37] VITALS: BP 123/45
--- NOTE | 2016-10-06 23:14 | NUR ---
PT. IN BED WITH HOB UP FOR COMFORT WITH EYES CLOSED AND RESP. EVEN. CALL LIGHT WITHIN REACH AND HER O2 AT 1/5L/MIN VIA N/C WITHOUT ANY S/S DISTRESS.
--- NOTE | 2016-10-07 03:03 | NUR ---
PT. IN BED WITH HOB UP FOR COMFORT WITH EYES CLOSED AND RESP. EVEN. O2 ON AT 1.5L/VIA N/C WITHOUT ANY S/S DISTRESS OBSERVED. CALL LIGHT REMAINS WITHIN REACH.
[2016-10-07 07:01] LABS: BASOPHILS 0.4 % (0-2); EOSINOPHILS 4.5 % (0-7); HEMATOCRIT 36.4 % (36.0-48.0); HEMOGLOBIN 12.3 g/dL (12-16); LYMPHOCYTES 26.9 % (15-50); MCH 31.4 pg (26.0-34.0); MCHC 33.8 g/dL (31.0-37.0); MCV 92.9 fL (80.0-100.0); MEAN PLATELET VOLUME 9.9 fL (7.4-10.4); MONOCYTES 8.8 % (2-11); NEUTROPHILS 59.4 % (40-80); PLATELET COUNT 207 10x3/uL (130-400); RBC 3.92 10x6/uL (4.00-5.40); RDW 12.4 % (11.5-14.5); WBC 4.7 10x3/uL (4.8-10.8)
[2016-10-07 07:20] LABS: CALC OSMOLALITY 270 mosm/kg (275-300); CALCIUM 9.1 mg/dL (8.5-10.1); CARBON DIOXIDE 28.9 mmol/L (21.0-32.0); CHLORIDE - SERUM 102 mmol/L (98-107); CREATININE - SERUM 0.6 mg/dL (0.6-1.3); GLUCOSE 87 mg/dL (74-106); POTASSIUM - SERUM 3.5 mmol/L (3.5-5.1); SODIUM 136 mmol/L (136-145); UREA NITROGEN 12 mg/dL (7-18); eGFR NON AFRICAN AMERICAN > 90 mL/min (90-120)
--- NOTE | 2016-10-07 07:40 | NUR ---
LYING IN BED EYES CLOSED RESTING QUIETLY. EASILY AROUSED WITH STIMULI. CALL LIGHT IN REACH.
[2016-10-07 08:00] VITALS: BP 141/51
--- NOTE | 2016-10-07 09:30 | NUR ---
CLEANED UP DUE TO LARGE URINE INCONTINENCE. GOWN AND UNDERPAD CHANGED. ALERT AND ORIENTED X3. C/O LOWER BACK PAIN 5/10 TYLENOL WAS GIVEN. CALL LIGHT IN REACH.
--- NOTE | 2016-10-07 10:42 | NUR ---
IN BED WITH OT ASSISTING WITH GETTING DRESSED;UP OOB TO THERAPY.
--- NOTE | 2016-10-07 11:30 | NUR ---
IN GYM WITH OCCUPATIONAL THERAPY.
--- NOTE | 2016-10-07 13:11 | NUR ---
LYING IN BED EYES CLOSED RESTING QUIETLY. EASILY AROUSED WITH STIMULI. CALL LIGHT IN REACH.
--- NOTE | 2016-10-07 15:20 | NUR ---
OUT OF ROOM IN GYM WITH PHYSICAL THERAPY. TOLERATING WELL.
--- NOTE | 2016-10-07 15:26 | NUR ---
NUTRITION MONITORING & EVAL CHART REVIEWED. ADA DIET. 75% INTAKE RECENT MEALS. RD FOLLOWING
--- NOTE | 2016-10-07 17:15 | NUR ---
SITTING UP IN BED WATCHING TV QUIETLY. PAIN 5/10 LOWER BACK. TYLENOL WAS GIVEN. CALL LIGHT IN REACH.
--- NOTE | 2016-10-07 19:45 | NUR ---
PT RESTING IN BED, DENIES NEEDS. WCTM.
[2016-10-07 20:49] VITALS: BP 132/62
--- NOTE | 2016-10-07 22:35 | NUR ---
PT HS MEDS ADMINISTERED. PT DENIES NEEDS. WCTM.
--- NOTE | 2016-10-08 02:30 | NUR ---
PT RESTING EYES CLOSED. RR ARE EVEN AND UNLABORED. CL IN REACH. WCTM.
--- NOTE | 2016-10-08 02:30 | NUR ---
PT HAS BEEN UP TO BR MULTIPLE TIMES THROUGH THE NIGHT. PT C/O OF SOB WHEN AMBULATING. O2 SATS REMAIN AROUND 94. CL IN REACH. WCTM.
--- NOTE | 2016-10-08 07:30 | NUR ---
LYING IN BED EYES CLOSED RESTING QUIETLY. EASILY AROUSED WITH STIMULI. CALL LIGHT IN REACH.
[2016-10-08 09:22] VITALS: BP 166/62
--- NOTE | 2016-10-08 09:35 | NUR ---
SITTING UP IN BED WATCHING TV QUIETLY. PAIN 2/10 LOWER BACK. REPOSITIONED ON RIGHT SIDE. CALL LIGHT IN REACH.
--- NOTE | 2016-10-08 11:15 | NUR ---
IN GYM WITH OCCUPATIONAL THERAPY. TOLERATED WELL
--- NOTE | 2016-10-08 12:07 | NUR ---
SITTING UP IN CHAIR.CL IN REACH.EATING LUNCH.
--- NOTE | 2016-10-08 13:30 | NUR ---
LYING IN BED EYES CLOSED RESTING QUIETLY. RISE AND FALL OF CHEST. CALL LIGHT IN REACH.
--- NOTE | 2016-10-08 15:30 | NUR ---
IN GYM WITH PHYSICAL THERAPY. TOLERATING WELL PER [facility]
--- NOTE | 2016-10-08 17:28 | NUR ---
SITTING UP IN BED 50 DEGREES EATING DINNER. NO CONCERNS VOICED. CALL LIGHT IN REACH.
--- NOTE | 2016-10-08 19:00 | NUR ---
IN BED, AWAKE. DENIES NEEDS.
[2016-10-08 19:50] VITALS: BP 148/51
--- NOTE | 2016-10-08 19:50 | NUR ---
VS AND ASSESSMENT COMPLETE. TOLD PATIENT I WILL RETURN LATER FOR HS MEDS.
--- NOTE | 2016-10-08 22:10 | NUR ---
CLEANSED PATIENT AND CHANGED HER BRIEF AND PINK BED PAD. APPLIED BUTT PASTE TO GLUTEAL CLEFT AND COCCYX AREAS FOR MILD REDNESS NOTED. GAVE PATIENT HER HS MEDS PO AFTER REPOSITIONING HER HIGHER UP IN BED. DENIES CURRENT NEEDS.
--- NOTE | 2016-10-08 23:45 | NUR ---
RESTING IN BED, EYES CLOSED.
--- NOTE | 2016-10-09 02:30 | NUR ---
CLEANSED PATIENT AND CHANGED HER PULL-UP AND HER PINK BED PAD DUE TO LARGE URINE INCONTINENCE DURING SLEEP.
--- NOTE | 2016-10-09 04:40 | NUR ---
IN BED, EYES CLOSED. RESPIRING QUIETLY.
[2016-10-09 06:04] LABS: BASOPHILS 0.3 % (0-2); EOSINOPHILS 3.6 % (0-7); HEMATOCRIT 37.1 % (36.0-48.0); HEMOGLOBIN 12.5 g/dL (12-16); IMMATURE GRANULOCYTES 0.1 % (0-5); LYMPHOCYTES 17.2 % (15-50); MCH 31.3 pg (26.0-34.0); MCHC 33.7 g/dL (31.0-37.0); MCV 92.8 fL (80.0-100.0); MEAN PLATELET VOLUME 9.9 fL (7.4-10.4); MONOCYTES 9.6 % (2-11); NEUTROPHILS 69.2 % (40-80); PLATELET COUNT 204 10x3/uL (130-400); RDW 12.3 % (11.5-14.5)
--- NOTE | 2016-10-09 06:05 | NUR ---
CLEANSED PATIENT AND CHANGED HER PULL-UP BRIEF. GAVE HER SCHEDULED PO MEDS. DENIES CURRENT NEEDS.
[2016-10-09 06:11] LABS: WBC 7.3 10x3/uL (4.8-10.8)
[2016-10-09 06:46] LABS: CALC OSMOLALITY 272 mosm/kg (275-300); CALCIUM 9.3 mg/dL (8.5-10.1); CARBON DIOXIDE 26.6 mmol/L (21.0-32.0); CHLORIDE - SERUM 102 mmol/L (98-107); CREATININE - SERUM 0.5 mg/dL (0.6-1.3); GLUCOSE 91 mg/dL (74-106); POTASSIUM - SERUM 3.9 mmol/L (3.5-5.1); SODIUM 137 mmol/L (136-145); UREA NITROGEN 11 mg/dL (7-18); eGFR NON AFRICAN AMERICAN > 90 mL/min (90-120)
--- NOTE | 2016-10-09 07:05 | NUR ---
RESTING QUIETLY IN BED CALL LIGHT IN REACH
--- NOTE | 2016-10-09 08:40 | NUR ---
PRN TYLENOL GIVEN FOR BACK PAIN PER PATIENT REQUEST.
[2016-10-09 09:00] VITALS: BP 144/49
--- NOTE | 2016-10-09 11:24 | NUR ---
PATIENT HAD SHOWER WITH OCCUPATIONAL THERAPIST. INCONT OF BOWEL AND BLADDER WHILE PATIENT IN SHOWER.
--- NOTE | 2016-10-09 12:49 | NUR ---
CARE TEAM MEETING: TENATIVE DISCHARGE DATE IS 10/15/16.WILL CONTINUE TO FOLLOW WITH PATIENT AND WILL ASSIST WITH DISCHARGE NEEDS.
--- NOTE | 2016-10-09 16:22 | NUR ---
PRN TYLENOL GIVEN FOR BACK PAIN PER PATIENTS REQUEST
--- NOTE | 2016-10-09 19:30 | NUR ---
PT REST IN BED EYE OPEN, DENIES NEEDS.
--- NOTE | 2016-10-09 23:30 | NUR ---
CHECKING LINEN AND GOWN, THEY ARE DRY,PT REST QUIETLY IN BED WITH EYE CLOSE, BED LOW, CALL LIGHT WITHIN REACH.
--- NOTE | 2016-10-10 01:45 | NUR ---
IN BED, EYES CLOSED. SNORING.
[2016-10-10 08:00] VITALS: BP 141/54
--- NOTE | 2016-10-10 08:00 | NUR ---
PATIENT ALERT/ORIENT X4. USING CALL LIGHT FOR NEEDS. VOICES NO NEEDS AT THIS TIME. RIGHT HAND AND ARM WEAKNESS. BREAKFAST FOOD CUT UP AND CARTONS OPEN FOR PATIENT.
--- NOTE | 2016-10-10 09:30 | NUR ---
PRN TYLENOL GIVEN FOR BACK PAIN PER PATIENT REQUEST
--- NOTE | 2016-10-10 11:11 | NUR ---
PATIENT INCONT OF URINE. PATIENT DRESSED AND MICHELE CARE GIVEN. LINENES ON BED CHANGED. TAKEN DOWN TO REHAB ROOM TO WORK WITH PHYSICAL THERAPIST. DENIES ANY PAIN/DISC AT THIS TIME
--- NOTE | 2016-10-10 12:54 | NUR ---
Nutrition Follow Up: Pt is eating 78% meal avg on a diabetic diet. +BM 10/09/16. No new wt to assess. Labs reviewed. Meds noted including Reglan. Rec continue current diet. RD following.
--- NOTE | 2016-10-10 18:35 | NUR ---
RESTING QUIETLY IN BED. CALL LIGHT IN REACH
--- NOTE | 2016-10-10 19:30 | NUR ---
PT IN BED WITH HOB UP FOR COMFORT. READJUSTED PT IN BED WITH HELP OF MINDY LOWERY. ALERT & ORIENTED. [place]. RIGHT ARM AND LEG WEAKNESS. INCONTINENT OF BOWEL AND BLADDER. MOD. ASSIST. NO O2. NO IV. BED IN LOWEST POSITION AND CALL LIGHT WITHIN REACH.
[2016-10-10 19:43] VITALS: BP 161/61
--- NOTE | 2016-10-10 23:30 | NUR ---
PT IN BED WITH HOB UP FOR COMFORT. EYES CLOSED. CHEST RISING AND FALLING. BED IN LOWEST POSITION AND CALL LIGHT WITHIN REACH.
--- NOTE | 2016-10-11 03:21 | NUR ---
PT RESTING QUIETLY, NO S/S OF ACUTE DISTRESS, RESPIRATIONS REGULAR AND UNLABORED LYING ON BACK APPEARS TO BE SLEEPING.
[2016-10-11 07:53] VITALS: BP 137/52
--- NOTE | 2016-10-11 08:01 | NUR ---
SITTING UP IN BED EATING BREAKFAST. HAS POOR FINE MOTOR SKILLS AND IS WEAK ON RIGHT. [place].
--- NOTE | 2016-10-11 09:39 | NUR ---
order has been faxed to [employer] for wheelchair to be delivered to patient house, for discharge to home on 10/15/16.conformation recieved of fax.
--- NOTE | 2016-10-11 10:42 | NUR ---
PATIENT WILL DISCHARGE HOME ON 10/15/16 WITH [employer] [facility], [facility]IVIAN WILL DELIVER A WHEELCHAIR TO PATIENT AT HOME. DR. MARTI 10/21/16 @ 11:10. PATIENT CHOICE FORM FOR HOME HEALTH AND [facility] FORM SIGNED, EXPLAINED AND FILED IN CHART. WILL FAX RECORDS CLOSER TO DISCHARGE DATE. WILL CONTINUE TO FOLLOW WITH PATIENT.
--- NOTE | 2016-10-11 11:48 | NUR ---
RESTING QUIETLY IN BED. CALL LIGHT IN REACH
--- NOTE | 2016-10-11 18:29 | NUR ---
RESTING QUIETLY IN BED. ATE SUPPER IN BED AND NOW RECLINED WITH EYES CLOSED. CALL LIGHT IN REACH
[2016-10-11 18:38] VITALS: BP 128/49
--- NOTE | 2016-10-11 20:17 | NUR ---
REC'D PATIENT LYING DOWN IN BED. ALERT AND ORIENTED X4. DENIED PAIN AT THIS TIME. NO DISTRESS NOTED. INSTRUCTED TO CALL IF NEEDED ANYTHING. VERBALIZED UNDERSTANDING. BED LOW, LOCKED, CALL LIGHT IN REACH, ALARM ON.
--- NOTE | 2016-10-11 22:47 | NUR ---
PT. IN BED WITH HOB UP FOR COMFORT WITH EYES CLOSED AND RESP. EVEN. CALL LIGHT WITHIN REACH.
[2016-10-12 00:06] VITALS: BP 128/49
--- NOTE | 2016-10-12 00:55 | NUR ---
ASSUMED CARE FROM SAMIR CUBA. PT. IN BED WITH HOB UP FOR COMFORT WITH EYES CLOSED AND RESP. EVEN. CALL LIGHT WITHIN REACH.
--- NOTE | 2016-10-12 03:07 | NUR ---
PT. IN BED WITH HOB UP FOR COMFORT WITH EYES CLOSED AND RESP. EVEN. CALL LIGHT WITHIN REACH.
--- NOTE | 2016-10-12 06:45 | NUR ---
PT. IN BED WITH HOB UP FOR COMFORT. PT. AWAKENS EASILY FOR MORNING MEDICATIONS. NO VOICED NEEDS. CALL LIGHT WITHIN REACH.
--- NOTE | 2016-10-12 07:30 | NUR ---
LYING IN BED EYES CLOSED RESTING QUIETLY. EASILY AROUSED WITH STIMULI. CALL LIGHT IN REACH. WILL CONTINUE TO MONITOR.
[2016-10-12 08:00] VITALS: BP 175/77
--- NOTE | 2016-10-12 08:41 | NUR ---
RESTING QUIETLY IN BED.CL IN REACH.
--- NOTE | 2016-10-12 09:30 | NUR ---
SITTING UP IN BED WATCHING NEWS ON TV, NAD NOTED. PLEASANT AFFECT. ALERT AND ORIENTED X4. DENIES ANY NEEDS. CALL LIGHT IN REACH. WILL CONTINUE TO MONITOR.
--- NOTE | 2016-10-12 11:30 | NUR ---
LYING IN BED EYES CLOSED RESTING QUIETLY, NAD NOTED. CALL LIGHT IN REACH. WILL CONTINUE TO MONITOR.
--- NOTE | 2016-10-12 13:30 | NUR ---
SITTING UP IN BED WATCHING TV, NAD NOTED. DENIES PAIN. CALL LIGHT IN REACH. WILL CONTINUE TO MONITOR
--- NOTE | 2016-10-12 15:30 | NUR ---
SITTING UP IN BED RESTING QUIETLY. NO CONCERNS VOICED. CALL LIGHT IN REACH. WILL CONTINUE TO MONITOR.
--- NOTE | 2016-10-12 17:38 | NUR ---
SITTING UP IN BED EATING DINNER, NAD NOTED. DENIES PAIN OR ANY NEEDS AT THIS TIME. CALL LIGHT IN REACH. WILL CONTINUE TO MONITOR.
--- NOTE | 2016-10-12 19:15 | NUR ---
PATIENT IN BED. DENIES NEEDS. REMINDED HER TONIGHT IS HER SHOWER NIGHT. SAYS SHE WILL BE READY WHENEVER I CAN ASSIST HER.
[2016-10-12 21:35] VITALS: BP 132/67
--- NOTE | 2016-10-12 22:50 | NUR ---
ASSISTED PATIENT UP TO [facility] AND BATHED HER THERE PER HER REQUEST. WASHED HER HAIR WELL. APPLIED FRESH PULL-UP BRIEF AND FRESH SCRUB SHIRT. CHANGED ALL BED LINENS AND RETURNED HER TO BED. SAYS, "I FEEL SO CLEAN!"
--- NOTE | 2016-10-13 00:10 | NUR ---
IN BED, EYES CLOSED. RESTING QUIETLY.
--- NOTE | 2016-10-13 01:50 | NUR ---
REMAINS IN BED, EYES CLOSED. NO EVIDENT DISTRESS.
--- NOTE | 2016-10-13 04:30 | NUR ---
RESTING IN BED, EYES CLOSED. SNORING.
--- NOTE | 2016-10-13 05:50 | NUR ---
AWOKE PATIENT AND DELIVERED HER PO MEDS. SWALLOWED THEM WITHOUT DIFFICULTY.
[2016-10-13 07:30] VITALS: BP 137/61
--- NOTE | 2016-10-13 07:33 | NUR ---
LYING IN BED SUPINE EYES CLOSED RESTING QUIETLY, NAD NOTED. EASILY AROUSED WITH STIMULI. CALL LIGHT IN REACH. WILL CONTINUE TO MONITOR.
--- NOTE | 2016-10-13 07:40 | NUR ---
RESTING QUIETLY.CL IN REACH.
--- NOTE | 2016-10-13 07:40 | NUR ---
SLEEPING.RESP EASY.CL IN REACH.
--- NOTE | 2016-10-13 09:59 | NUR ---
SITTING UP IN BED RESTING QUIELTY. C/O OF NAUSEA AND REQUESTS SOMETHING TO HELP EASE SYMPTOMS. DENIES PAIN. CALL LIGHT IN REACH. WILL CONTINUE TO MONITOR.
--- NOTE | 2016-10-13 11:36 | NUR ---
LYING IN BED EYES CLOSED RESTING QUIETLY. CLEANED UP PT DUE TO INCONTINENCE OF BLADDER (LARGE VOID). CALL LIGHT IN REACH. WILL CONTINUE TO MONITOR.
--- NOTE | 2016-10-13 14:07 | NUR ---
SITTING UP IN BED REQUESTS MILK AND NATALYA CRACKERS. WILL CONTINUE TO MONITOR CALL LIGHT IN REACH
--- NOTE | 2016-10-13 16:04 | NUR ---
SITTING UP IN BED VISTITING WITH ROOM MATE AND FAMILY. DENIES NEEDS. WILL CONTINUE TO MONITOR. CALL LIGHT IN REACH.
--- NOTE | 2016-10-13 19:00 | NUR ---
IN BED, AWAKE. DENIES NEEDS.
[2016-10-13 19:55] VITALS: BP 145/58
--- NOTE | 2016-10-13 19:55 | NUR ---
VS AND ASSESMENT COMPLETE. CHANGED PATIENT'S PULL-UP BRIEF AFTER MODERATE URINE INCONTINENCE. DENIES CURRENT NEEDS. REPOSITIONED HER HIGHER UP IN BED FOR COMFORT.
--- NOTE | 2016-10-13 21:15 | NUR ---
GAVE PATIENT SCHEDULED HS MEDS. DENIES CURRENT NEEDS.
--- NOTE | 2016-10-13 22:20 | NUR ---
GAVE PATIENT HS SNACK OF 3 NATALYA SQUARES AND 8 OZS SKIM MILK.
--- NOTE | 2016-10-14 00:10 | NUR ---
CLEANSED PATIENT FROM MODERATE URINE INCONTINENCE AND A MEDIUM SOFT-FORMED BM INCONTINENCE IN HER BRIEF. APPLIED FRESH PULL-UP BRIEF. PATIENT WAS UNAWARE OF HER INCONTINENCE.
--- NOTE | 2016-10-14 02:15 | NUR ---
IN BED, EYES CLOSED. SNORING.
--- NOTE | 2016-10-14 04:45 | NUR ---
RESTING IN BED, EYES CLOSED. RESPIRATIONS ARE UNLABORED.
[2016-10-14 05:50] LABS: BASOPHILS 0.4 % (0-2); EOSINOPHILS 4.1 % (0-7); HEMATOCRIT 36.6 % (36.0-48.0); HEMOGLOBIN 12.6 g/dL (12-16); IMMATURE GRANULOCYTES 0.2 % (0-5); LYMPHOCYTES 23.8 % (15-50); MCH 31.7 pg (26.0-34.0); MCHC 34.4 g/dL (31.0-37.0); MCV 92.2 fL (80.0-100.0); MEAN PLATELET VOLUME 9.5 fL (7.4-10.4); MONOCYTES 8.9 % (2-11); NEUTROPHILS 62.6 % (40-80); PLATELET COUNT 218 10x3/uL (130-400); RBC 3.97 10x6/uL (4.00-5.40); RDW 12.3 % (11.5-14.5); WBC 4.8 10x3/uL (4.8-10.8)
[2016-10-14 06:01] LABS: CALC OSMOLALITY 270 mosm/kg (275-300); CALCIUM 9.1 mg/dL (8.5-10.1); CARBON DIOXIDE 29.6 mmol/L (21.0-32.0); CHLORIDE - SERUM 101 mmol/L (98-107); CREATININE - SERUM 0.6 mg/dL (0.6-1.3); GLUCOSE 92 mg/dL (74-106); SODIUM 135 mmol/L (136-145); UREA NITROGEN 14 mg/dL (7-18); eGFR NON AFRICAN AMERICAN > 90 mL/min (90-120)
--- NOTE | 2016-10-14 07:23 | NUR ---
LYING IN BED SUPINE EYES CLOSED RESTING QUIETLY, NAD NOTED. CALL LIGHT IN REACH. WILL CONTINUE TO MONITOR
[2016-10-14 09:13] VITALS: BP 116/57
--- NOTE | 2016-10-14 09:50 | NUR ---
IN GYM WITH THERAPY.
--- NOTE | 2016-10-14 11:30 | NUR ---
LYING IN BED 40 DEGREES, C/O LOWER BACK PAIN R/T THERAPY 11/21 ADMINISTERED TYLENOL PER PT REQUEST. WILL CONTINUE TO MONITOR. CALL LIGHT IN REACH
--- NOTE | 2016-10-14 17:30 | NUR ---
SITTING UP IN BED WATCHING TV, NAD NOTED. DENIES NEEDS. CALL LIGHT IN REACH WILL CONTINUE TO MONITOR
--- NOTE | 2016-10-14 19:00 | NUR ---
IN BED, AWAKE. GAVE PATIENT HER MENU TO COMPLETE FOR LUNCH TOMORROW ONLY, INCASE SHE DISCHARGES LATER THAN THE NOON HOUR.
--- NOTE | 2016-10-14 19:19 | NUR ---
RESTING QUIETLY IN BED. CALL LIGHT IN REACH
--- NOTE | 2016-10-14 20:05 | NUR ---
RESTING QUIETLY IN BED, EYES CLOSED.
[2016-10-14 20:07] VITALS: BP 120/54
--- NOTE | 2016-10-14 22:25 | NUR ---
ASSESSMENT AND HS MEDS COMPLETE. DENIES NEEDS. DERMATOLOGY NURSE TO BATHE PATIENT SHORTLY.
--- NOTE | 2016-10-15 00:10 | NUR ---
IN BED, EYES CLOSED. SNORING SOFTLY.
--- NOTE | 2016-10-15 01:50 | NUR ---
IN BED, EYES CLOSED. SNORING LOUDLY.
--- NOTE | 2016-10-15 04:15 | NUR ---
CLEANSED PATIENT AND CHANGED HER PINK BED PAD, HER BRIEF, AND HER SCRUB TOP DUE TO VERY LARGE URINE INCONTINENCE. DENIES FURTHER NEEDS.
--- NOTE | 2016-10-15 06:30 | NUR ---
RESTING QUIETLY AFTER EARLIER RECEIVING SCHEDULED PO MEDS.
--- NOTE | 2016-10-15 07:15 | NUR ---
RESTING QUIETLY IN BED WITH EYES CLOSED. CALL LIGHT IN REACH
--- NOTE | 2016-10-15 07:42 | NUR ---
SITTING UP IN BED EATING BREAKFAST. ALERT AND ORIENTED X4. DENIES PAIN OR ANY OTHER NEEDS THIS MORNING. CALL LIGHT IN REACH. WILL CONTINUE TO MONITOR.
[2016-10-15] MEDS ORDERED: CELEXA20 MG PO (08:28)
[2016-10-15 08:49] VITALS: BP 139/69
--- NOTE | 2016-10-15 11:12 | NUR ---
CHANGED BRIEF AND BEDDING DUE TO LARGE URINE INCONTINENCE. GAVE NATALYA CRAKERS AND MILK PER PT REQUEST. NO OTHER NEEDS VOICED. CALL LIGHT IN REACH. WILL CONTINUE TO FOLLOW.
--- NOTE | 2016-10-15 13:00 | NUR ---
CHANGED BRIEF DUE TO BLADDER AND BOWEL INCONTINENCE. HAD MED SOFT DARK BROWN BM AND MED VOID. ASSISTED WITH GETTING DRESSED AND READY FOR DC. INFORMED PT AND SON DELFINA OF DC INSTRUCTIONS AND MEDICATIONS. PER PT REQUESTS ALL MEDS CALLED INTO [facility]. NO CONCERNS VOICED AT THIS TIME.
--- NOTE | 2016-10-15 13:20 | NUR ---
JUSTICE LOWERY ASSISTED PT AND FAMILY OUT TO PERSONAL VEHICLE VIA WHEELCHAIR. SON DELFINA HAD ALL OF PT DC PAPERWORK AND PT BELONGINGS.
== END 2016-10-15 15:57 | disposition home health service (06) | DRG 948 ==
LOC: D.REHAB 16:45
PROVIDERS: ADMIT Emergency Medicine
DX: R53.81 Other malaise (principal); N39.0 Urinary tract infection, site not specified; R53.1 Weakness; R11.2 Nausea with vomiting, unspecified; E11.43 Type 2 diabetes mellitus with diabetic autonomic (poly)neuropathy; K31.84 Gastroparesis; R51 Headache

== ENCOUNTER → 2017-03-18 16:07 | Outpatient (CLI) | payer MEDICARE, OTHER ==
[2016-10-01 12:32] VITALS: BMI 21.9
[~2017-03-18 16:07] MED LIST changes: +CELEXA20 MG PO; +DULCOLAX10 MG/SUPP RC; +LEXAPRO10 MG PO; +LORAZEPAM1 MG/0.5 M PO; +MORPHINE SUL20 MG/ML PO; +OMEPRAZOLE40 MG PO
== END | disposition home or self-care (01) ==
LOC: D.US 16:07 → D.CT 17:00
DX: R53.1 Weakness (principal); G45.9 Transient cerebral ischemic attack, unspecified

== ENCOUNTER 2017-04-23 12:27 | Inpatient (IN) | payer MEDICARE, OTHER ==
[~2017-04-23] VITALS: Ht 170.2 cm; Wt 53.5 kg
--- NOTE | ~2017-04-23 | HP ---
PATIENT: HITESH JACINTO MEDICAL RECORD: [id number] ACCOUNT: [id number] LOCATION:[id number] : [id number] ADMISSION DATE: 04/23/17 HISTORY AND PHYSICAL EXAMINATION DATE OF ADMISSION: 04/23/2017 CHIEF COMPLAINT: Weakness, cough, and chest pain. HISTORY OF PRESENT ILLNESS: This is a 76-year-old female who presents complaining of pain in the right chest when she takes a deep breath or when she coughs. Symptoms have been going on for about a week and getting worse. She denies fever, but has felt a few chills. Cough is mostly nonproductive, it is worse when she lies down. She was so weak she could not stand up for chest x-ray in our clinic. She was sent to [facility] for an outpatient chest x-ray and this was done showing focal rounded density on the lateral view posteriorly. This is a possible lung mass with adenopathy and seen on the right side. She is admitted for above symptoms. PAST MEDICAL AND SURGICAL HISTORY: She had a stroke in 2009 and she has diet-controlled diabetes. She has hypertension and hypothyroidism. PAST SURGICAL HISTORY: Hysterectomy, colonoscopy, in [address] Buchanan. HOME MEDICATIONS: Pravastatin 40 mg a day, metoclopramide 10 mg before meals and at bedtime, Lexapro 10 mg a day, metformin 500 mg twice a day, extra strength Tylenol 1 pill twice a day as needed for pain, Zofran 1 every 6 hours p.r.n. nausea, and levothyroxine 50 mcg a day, and omeprazole 20 mg a day. ALLERGIES: CODEINE, PENICILLIN, POLLEN, AND SULFA. HABITS: She stopped smoking 24 years ago. No history of alcohol use. SOCIAL HISTORY: She is , retired. FAMILY HISTORY: Father at 51 of alcoholism. Mother at age 91 due to natural causes. A sister of oat cell lung cancer. REVIEW OF SYSTEMS: GENERAL: She states she really has not lost much weight in the last few weeks to months. By my records, she has lost about 15 pounds over the last 10 months. HEENT: Grossly within normal limits. NECK: Supple. RESPIRATORY: No history of asthma or emphysema. CARDIAC: No history of coronary artery disease. No chest pain or palpitations. GASTROINTESTINAL: She has had some reflux that is controlled. GENITOURINARY: No significant problems there. MUSCULOSKELETAL: He has had generalized weakness since she had a stroke several years ago. NEUROLOGIC: No seizures. No migraines. PSYCHIATRIC: She has some depression since the loss of her a few years ago. PHYSICAL EXAMINATION: VITAL SIGNS: Temperature 98.8, pulse 106, respirations 18, blood pressure HISTORY AND PHYSICAL [id number] HITESH JACINTO M 160/50, O2 sat 93% on room air. GENERAL: She is quite weak. She has her left hand over the right upper chest area as if in pain. HEENT: Grossly within normal limits. NECK: Supple. HEART: Regular rate and rhythm. LUNGS: Few diminished breath sounds in upper right chest area. No wheezes. No pain to palpation of the chest wall or the upper back. ABDOMEN: Soft. EXTREMITIES: No edema. NEUROLOGICAL: She is generally weak. She is not able to stand. She is in a wheelchair today. ASSESSMENT: 1. Lung mass with adenopathy. 2. Possible pneumonia. 3. Generalized weakness. PLAN: We will admit. Get CT of the chest. Further workup as warranted. TRANSINT:[id number] Voice Confirmation ID: [id number] DOCUMENT ID: [id number] SAMINA MARTI MD at 1433 CC: [id number] DICTATION DATE: 04/23/171914 COTTON BUYER: 04/23/17 2336 ADM IN [facility] [address] [place] [address]
[~2017-04-23 12:27] MED LIST changes: -DULCOLAX10 MG/SUPP RC; -LEXAPRO10 MG PO; -LORAZEPAM1 MG/0.5 M PO; -MORPHINE SUL20 MG/ML PO; -OMEPRAZOLE40 MG PO
[2017-04-23] MEDS ORDERED: LEXAPRO10 MG PO (17:02)
[2017-04-23] MEDS ORDERED: OMEPRAZOLE40 MG PO (17:03)
[2017-04-23 17:04] VITALS: BP 160/50; BMI 18.5
[2017-04-23 17:18] VITALS: BP 160/50
[2017-04-23 19:49] LABS: BASOPHILS 0 % (0-2); EOSINOPHILS 0.2 % (0-7); HEMATOCRIT 40.1 % (36.0-48.0); HEMOGLOBIN 13.7 g/dL (12-16); IMMATURE GRANULOCYTES 0.2 % (0-5); LYMPHOCYTES 8.6 % (15-50); MCH 31.4 pg (26.0-34.0); MCHC 34.2 g/dL (31.0-37.0); MONOCYTES 6.6 % (2-11); NEUTROPHILS 84.4 % (40-80); PLATELET COUNT 220 10x3/uL (130-400); RBC 4.36 10x6/uL (4.00-5.40); RDW 13.8 % (11.5-14.5); WBC 9.8 10x3/uL (4.8-10.8)
[2017-04-23 19:59] LABS: INR 1.13 (0.85-1.17); PROTIME 14.1 SECONDS (11.6-15.0)
[2017-04-23 20:00] VITALS: BP 170/58
[2017-04-23 20:10] LABS: ALBUMIN 3.2 g/dL (3.4-5.0); ALKALINE PHOSPHATASE 57 U/L (46-116); ALT (SGPT) 10 U/L (10-68); CALC OSMOLALITY 256 mosm/kg (275-300); CALCIUM 9.3 mg/dL (8.5-10.1); CHLORIDE - SERUM 98 mmol/L (98-107); CREATININE - SERUM 0.7 mg/dL (0.6-1.3); GLUCOSE 102 mg/dL (74-106); POTASSIUM - SERUM 4.1 mmol/L (3.5-5.1); PROTEIN - SERUM 7.4 g/dL (6.4-8.2); SODIUM 126 mmol/L (136-145); UREA NITROGEN 24 mg/dL (7-18); eGFR NON AFRICAN AMERICAN 86 mL/min (90-120)
[2017-04-24] VITALS: BP 166/59
[2017-04-24 05:00] VITALS: BP 130/56
[2017-04-24 09:38] VITALS: BP 137/51
[2017-04-24 13:45] VITALS: BP 174/81
[2017-04-24 14:06] VITALS: BMI 18.4
[2017-04-24 16:58] VITALS: BP 141/65
[2017-04-24 22:28] VITALS: BP 147/50
[2017-04-25 02:16] VITALS: BP 162/84
[2017-04-25 04:00] VITALS: BP 143/65
[2017-04-25 08:05] LABS: BASOPHILS 0 % (0-2); EOSINOPHILS 2.2 % (0-7); HEMATOCRIT 35.8 % (36.0-48.0); IMMATURE GRANULOCYTES 0.1 % (0-5); LYMPHOCYTES 13.2 % (15-50); MCH 30.9 pg (26.0-34.0); MCHC 33.5 g/dL (31.0-37.0); MCV 92.3 fL (80.0-100.0); MEAN PLATELET VOLUME 9.6 fL (7.4-10.4); MONOCYTES 8.5 % (2-11); PLATELET COUNT 187 10x3/uL (130-400); RBC 3.88 10x6/uL (4.00-5.40); RDW 13.9 % (11.5-14.5)
[2017-04-25 08:11] LABS: WBC 6.9 10x3/uL (4.8-10.8)
[2017-04-25 08:16] LABS: CALCIUM 9.1 mg/dL (8.5-10.1); CARBON DIOXIDE 29.9 mmol/L (21.0-32.0); CHLORIDE - SERUM 101 mmol/L (98-107); GLUCOSE 102 mg/dL (74-106); POTASSIUM - SERUM 3.6 mmol/L (3.5-5.1); SODIUM 137 mmol/L (136-145)
[2017-04-25 08:24] LABS: APTT 37.5 SECONDS (22.8-39.4); INR 1.17 (0.85-1.17); PROTIME 14.5 SECONDS (11.6-15.0)
[2017-04-25 08:40] LABS: CALC OSMOLALITY 273 mosm/kg (275-300); CREATININE - SERUM 0.5 mg/dL (0.6-1.3); UREA NITROGEN 12 mg/dL (7-18); eGFR NON AFRICAN AMERICAN > 90 mL/min (90-120)
[2017-04-25 08:57] VITALS: BP 144/57
[2017-04-25 12:56] VITALS: BP 146/68
[2017-04-25 21:43] VITALS: BP 156/62
[2017-04-26 00:10] VITALS: BP 147/51
[2017-04-26 04:21] VITALS: BP 131/49
[2017-04-26 08:34] VITALS: BP 147/63
[2017-04-26 12:05] VITALS: BP 126/54
[2017-04-26 16:07] VITALS: BP 124/55
[2017-04-27 06:12] LABS: CALC OSMOLALITY 269 mosm/kg (275-300); CALCIUM 8.6 mg/dL (8.5-10.1); CARBON DIOXIDE 30.4 mmol/L (21.0-32.0); CHLORIDE - SERUM 99 mmol/L (98-107); CREATININE - SERUM 0.4 mg/dL (0.6-1.3); GLUCOSE 103 mg/dL (74-106); POTASSIUM - SERUM 3.5 mmol/L (3.5-5.1); SODIUM 136 mmol/L (136-145); eGFR NON AFRICAN AMERICAN > 90 mL/min (90-120)
[2017-04-27 06:13] LABS: UREA NITROGEN 6 mg/dL (7-18)
[2017-04-27 06:22] LABS: BASOPHILS 0.2 % (0-2); EOSINOPHILS 2.9 % (0-7); HEMATOCRIT 32.2 % (36.0-48.0); HEMOGLOBIN 10.6 g/dL (12-16); IMMATURE GRANULOCYTES 0.2 % (0-5); LYMPHOCYTES 12.7 % (15-50); MCH 30.8 pg (26.0-34.0); MCHC 32.9 g/dL (31.0-37.0); MCV 93.6 fL (80.0-100.0); MEAN PLATELET VOLUME 10.3 fL (7.4-10.4); MONOCYTES 9.4 % (2-11); NEUTROPHILS 74.6 % (40-80); PLATELET COUNT 181 10x3/uL (130-400); RBC 3.44 10x6/uL (4.00-5.40); RDW 13.7 % (11.5-14.5); WBC 6.5 10x3/uL (4.8-10.8)
[2017-04-27 09:30] VITALS: BP 119/41
[2017-04-27 12:07] VITALS: BP 129/46
[2017-04-27 16:12] VITALS: BP 131/53
[2017-04-27 22:07] VITALS: BP 123/49
[2017-04-28 00:25] VITALS: BP 153/54
[2017-04-28 04:49] LABS: BASOPHILS 0.2 % (0-2); EOSINOPHILS 2.4 % (0-7); HEMATOCRIT 30.6 % (36.0-48.0); HEMOGLOBIN 10.1 g/dL (12-16); IMMATURE GRANULOCYTES 0.3 % (0-5); LYMPHOCYTES 12.5 % (15-50); MCH 30.4 pg (26.0-34.0); MCV 92.2 fL (80.0-100.0); MEAN PLATELET VOLUME 9.5 fL (7.4-10.4); MONOCYTES 9.5 % (2-11); NEUTROPHILS 75.1 % (40-80); RBC 3.32 10x6/uL (4.00-5.40); RDW 13.2 % (11.5-14.5); WBC 6.6 10x3/uL (4.8-10.8)
[2017-04-28 05:07] LABS: PLATELET COUNT 218 10x3/uL (130-400)
[2017-04-28 05:16] LABS: CALC OSMOLALITY 272 mosm/kg (275-300); CALCIUM 8.8 mg/dL (8.5-10.1); CHLORIDE - SERUM 99 mmol/L (98-107); CREATININE - SERUM 0.5 mg/dL (0.6-1.3); GLUCOSE 103 mg/dL (74-106); POTASSIUM - SERUM 3.3 mmol/L (3.5-5.1); SODIUM 137 mmol/L (136-145); eGFR NON AFRICAN AMERICAN > 90 mL/min (90-120)
[2017-04-28 05:22] LABS: UREA NITROGEN 9 mg/dL (7-18)
[2017-04-28 05:54] VITALS: BP 147/61
[2017-04-28 08:44] VITALS: BP 133/51
[2017-04-28 12:34] VITALS: BP 122/46
[2017-04-28 17:18] VITALS: BP 128/50
[2017-04-29 06:04] LABS: CALC OSMOLALITY 272 mosm/kg (275-300); CALCIUM 8.6 mg/dL (8.5-10.1); CARBON DIOXIDE 32.9 mmol/L (21.0-32.0); CHLORIDE - SERUM 100 mmol/L (98-107); CREATININE - SERUM 0.4 mg/dL (0.6-1.3); GLUCOSE 125 mg/dL (74-106); POTASSIUM - SERUM 3.3 mmol/L (3.5-5.1); SODIUM 137 mmol/L (136-145); UREA NITROGEN 7 mg/dL (7-18); eGFR NON AFRICAN AMERICAN > 90 mL/min (90-120)
[2017-04-29 06:14] LABS: BASOPHILS 0.1 % (0-2); EOSINOPHILS 1.2 % (0-7); HEMATOCRIT 32.2 % (36.0-48.0); HEMOGLOBIN 10.7 g/dL (12-16); IMMATURE GRANULOCYTES 0.4 % (0-5); LYMPHOCYTES 10.4 % (15-50); MCH 30.5 pg (26.0-34.0); MCHC 33.2 g/dL (31.0-37.0); MCV 91.7 fL (80.0-100.0); MONOCYTES 8.9 % (2-11); PLATELET COUNT 244 10x3/uL (130-400); RBC 3.51 10x6/uL (4.00-5.40); RDW 13.3 % (11.5-14.5); WBC 7.8 10x3/uL (4.8-10.8)
[2017-04-29 06:49] VITALS: BP 158/59
[2017-04-29 08:45] VITALS: BP 142/79
[2017-04-29 12:18] VITALS: BP 145/51
[2017-04-29 16:31] VITALS: BP 126/49
[2017-04-29 20:24] VITALS: BP 150/61
[2017-04-29 23:39] VITALS: BP 137/51
[2017-04-30 04:33] VITALS: BP 114/42
[2017-04-30 06:08] LABS: CALC OSMOLALITY 271 mosm/kg (275-300); CALCIUM 8.5 mg/dL (8.5-10.1); CARBON DIOXIDE 33.8 mmol/L (21.0-32.0); CHLORIDE - SERUM 100 mmol/L (98-107); CREATININE - SERUM 0.5 mg/dL (0.6-1.3); GLUCOSE 100 mg/dL (74-106); POTASSIUM - SERUM 3.4 mmol/L (3.5-5.1); SODIUM 137 mmol/L (136-145); UREA NITROGEN 8 mg/dL (7-18); eGFR NON AFRICAN AMERICAN > 90 mL/min (90-120)
[2017-04-30 06:11] LABS: BASOPHILS 0.1 % (0-2); EOSINOPHILS 1.7 % (0-7); HEMATOCRIT 30.7 % (36.0-48.0); HEMOGLOBIN 10.2 g/dL (12-16); IMMATURE GRANULOCYTES 0.4 % (0-5); LYMPHOCYTES 12.9 % (15-50); MCH 30.6 pg (26.0-34.0); MCHC 33.2 g/dL (31.0-37.0); MCV 92.2 fL (80.0-100.0); MEAN PLATELET VOLUME 9.7 fL (7.4-10.4); MONOCYTES 12.7 % (2-11); NEUTROPHILS 72.2 % (40-80); PLATELET COUNT 254 10x3/uL (130-400); RBC 3.33 10x6/uL (4.00-5.40); RDW 13.3 % (11.5-14.5); WBC 7.2 10x3/uL (4.8-10.8)
[2017-04-30 08:56] VITALS: BP 139/62
[2017-04-30 12:17] VITALS: BP 113/42
[2017-04-30 16:41] VITALS: BP 112/45
[2017-04-30 22:12] VITALS: BP 108/58
[2017-05-01 01:32] VITALS: BP 141/48
[2017-05-01 05:10] LABS: BASOPHILS 0.2 % (0-2); HEMATOCRIT 29.5 % (36.0-48.0); HEMOGLOBIN 9.8 g/dL (12-16); IMMATURE GRANULOCYTES 0.4 % (0-5); LYMPHOCYTES 13.9 % (15-50); MCH 31.2 pg (26.0-34.0); MCHC 33.2 g/dL (31.0-37.0); MCV 93.9 fL (80.0-100.0); MEAN PLATELET VOLUME 9.4 fL (7.4-10.4); MONOCYTES 11.2 % (2-11); NEUTROPHILS 70.3 % (40-80); PLATELET COUNT 233 10x3/uL (130-400); RBC 3.14 10x6/uL (4.00-5.40); RDW 13.4 % (11.5-14.5); WBC 5.5 10x3/uL (4.8-10.8)
[2017-05-01 05:53] LABS: CALC OSMOLALITY 271 mosm/kg (275-300); CALCIUM 8.7 mg/dL (8.5-10.1); CARBON DIOXIDE 33.6 mmol/L (21.0-32.0); CHLORIDE - SERUM 99 mmol/L (98-107); CREATININE - SERUM 0.4 mg/dL (0.6-1.3); GLUCOSE 88 mg/dL (74-106); POTASSIUM - SERUM 3.4 mmol/L (3.5-5.1); SODIUM 137 mmol/L (136-145); UREA NITROGEN 9 mg/dL (7-18); eGFR NON AFRICAN AMERICAN > 90 mL/min (90-120)
[2017-05-01 06:33] VITALS: BP 153/67
[2017-05-01 08:45] VITALS: BP 115/59
[2017-05-01 12:37] VITALS: BP 136/49
[2017-05-01 16:14] VITALS: BP 130/54
[2017-05-01 20:54] VITALS: BP 144/48
[2017-05-02 00:53] VITALS: BP 125/60
[2017-05-02 04:46] VITALS: BP 117/48
[2017-05-02 08:45] VITALS: BP 126/55
[2017-05-02 12:32] VITALS: BP 155/52
[2017-05-02 16:27] VITALS: BP 125/46
[2017-05-02 18:22] VITALS: Ht 170.2 cm; Wt 53.5 kg
[2017-05-02 20:00] VITALS: BP 155/58
[2017-05-03] VITALS: BP 139/52
[2017-05-03 04:00] VITALS: BP 162/62
[2017-05-03 08:49] VITALS: BP 136/74
[2017-05-03 12:59] VITALS: BP 131/99
[2017-05-03 16:45] VITALS: BP 120/86
== END 2017-05-03 19:15 | disposition hospice, inpatient (51) | DRG 180 ==
LOC: D.RAD 12:27 → D.SDCHOLD 14:00 → D.MS 14:00
PROVIDERS: Family Medicine; Specialist
PROC: 0BBK3ZX Excision of Right Lung, Percutaneous Approach, Diagnostic (ICD-10-PCS; principal; 2017-04-25 08:30)
DX: C34.31 Malignant neoplasm of lower lobe, right bronchus or lung (principal); J18.9 Pneumonia, unspecified organism; J95.811 Postprocedural pneumothorax; R53.1 Weakness; R59.9 Enlarged lymph nodes, unspecified; E11.9 Type 2 diabetes mellitus without complications; I10 Essential (primary) hypertension; Y84.8 Other medical procedures as the cause of abnormal reaction of the patient, or of later complication, without mention of misadventure at the time of the procedure; E03.9 Hypothyroidism, unspecified

== ENCOUNTER 2017-05-03 19:56 | Inpatient (IN) | payer OTHER ==
[~2017-05-03] VITALS: Ht 170.2 cm; Wt 53.6 kg
[~2017-05-03 19:56] MED LIST changes: +LEXAPRO10 MG PO; +OMEPRAZOLE40 MG PO
[2017-05-04 01:13] VITALS: BP 169/65; BMI 18.5
[2017-05-04 08:42] VITALS: BP 138/48
[2017-05-04 12:27] VITALS: BP 127/50
[2017-05-04 16:30] VITALS: BP 153/50
[2017-05-04 20:00] VITALS: BP 155/56
[2017-05-04 20:19] VITALS: Ht 170.2 cm; Wt 53.6 kg
[2017-05-05 08:45] VITALS: BP 133/48
[2017-05-05 20:00] VITALS: BP 133/42
[2017-05-06 09:29] VITALS: BP 135/47
[2017-05-06 21:30] VITALS: BP 144/48
[2017-05-07 08:26] VITALS: BP 128/51
[2017-05-07 22:57] VITALS: BP 162/57
[2017-05-08 02:03] VITALS: BP 168/59
[2017-05-08 06:03] VITALS: BP 168/59
[2017-05-08 10:42] VITALS: BP 148/48
[2017-05-08 11:00] VITALS: BP 153/55
[2017-05-08 16:23] VITALS: BP 164/65
[2017-05-09 08:13] VITALS: BP 148/55
[2017-05-10 04:17] VITALS: BP 135/48
[2017-05-10 09:41] VITALS: BP 140/56
[2017-05-10 20:31] VITALS: BP 147/61
[2017-05-11 00:16] VITALS: BP 155/67
[2017-05-11 04:52] VITALS: BP 155/64
[2017-05-11 10:28] VITALS: BP 138/41
[2017-05-11 20:00] VITALS: BP 156/54
[2017-05-12 09:22] VITALS: BP 149/54
[2017-05-12 23:00] VITALS: BP 135/54
[2017-05-13 08:28] VITALS: BP 150/60
[2017-05-13 12:08] VITALS: BP 111/56
[2017-05-13 22:39] VITALS: BP 155/71
[2017-05-14 07:57] VITALS: BP 143/56
[2017-05-14 12:30] VITALS: BP 151/49
[2017-05-14 23:32] VITALS: BP 132/51
[2017-05-15 07:59] VITALS: BP 117/42
[2017-05-15 12:31] VITALS: BP 142/52
[2017-05-15] MEDS ORDERED: LORAZEPAM1 MG/0.5 M PO (14:11)
[2017-05-15] MEDS ORDERED: DULCOLAX10 MG/SUPP RC (14:12)
[2017-05-15] MEDS ORDERED: MORPHINE SUL20 MG/ML PO (14:12)
== END 2017-05-15 19:16 | disposition home health service (06) | DRG 951 ==
LOC: D.MS 19:56
DX: Z51.5 Encounter for palliative care (principal)